=== PATIENT | male | born 2000 ===

== ENCOUNTER 2018-09-03 23:12 | Emergency (ER) | payer OTHER ==
[~2018-09-03] VITALS: Ht 185.4 cm; Wt 70.0 kg
--- NOTE | 2018-09-03 23:29 | NUR ---
assessment made. PA at bedside.
[2018-09-03] MEDS ORDERED: DEXAMETHASONE 4 MG TABLET ONE (23:41)
[2018-09-04] MEDS ORDERED: ALBUTEROL/IPRATROPIUM 2.5MG/0.5MG, 3 ML NPPB SCH
[2018-09-04] MEDS ORDERED: DEXAMETHASONE 4 MG TABLET PO ONE
--- NOTE | 2018-09-04 | NUR ---
RT at bedside.
[2018-09-04 00:15] VITALS: BP 114/69
== END 2018-09-04 00:17 | disposition home or self-care (01) ==
LOC: ED 23:59
DX: J45.41 Moderate persistent asthma with (acute) exacerbation (principal); Z88.0 Allergy status to penicillin; Z88.1 Allergy status to other antibiotic agents
CPT/HCPCS: 94640; 94664; 99284; J7620; 99283